=== PATIENT | male | born 1995 | race Caucasian/White ===

== ENCOUNTER 2018-08-10 19:14 | Inpatient (IN) | payer SELFPAY ==
[2018-08-10] MEDS: NS 1,000 ML IV (20:00)
[2018-08-10 20:06] LABS: BASO % 0.5 % (0.0-1.0); EOS # 0.1 10^3/uL (0.0-0.50); HEMATOCRIT 44.9 % (42.0-52.0); HEMOGLOBIN 15.5 g/dl (13.5-17.5); IMMATURE GRANULOCYTE % 0.2 % (0-3.0); LYMPH # 2.5 10^3/uL (1.5-6.5); LYMPH % 29.8 % (24.0-44.0); MEAN CORPUSCULAR HEMOGLOBIN 31.3 pg (27.0-33.0); MEAN CORPUSCULAR HGB CONC 34.5 g/dl (32.0-36.5); MEAN CORPUSCULAR VOLUME 90.7 fl (80.0-96.0); MONO # 0.6 10^3/uL (0.0-0.8); MONO % 7.6 % (0.0-5.0); NEUTROPHILS # 5.1 10^3/uL (1.8-7.7); NEUTROPHILS % 60.9 % (36.0-66.0); PLATELET COUNT, AUTOMATED 205 10^3/uL (150-450); RED BLOOD COUNT 4.95 10^6/uL (4.30-6.10); RED CELL DISTRIBUTION WIDTH 11.8 % (11.5-14.5); WHITE BLOOD COUNT 8.4 10^3/uL (4.0-10.0)
[2018-08-10 20:27] LABS: ABG BASE EXCESS 0.3 (-2.0-2.0); ABG HCO3 25.4 MEQ/L (22.0-26.0); ABG O2 SATURATION 97.7 % (95.0-99.0); ABG PARTIAL PRESSURE CO2 42.8 mmHg (35.0-45.0); ABG PARTIAL PRESSURE O2 99.9 mmHg (75.0-100.0); ABG STANDARD HCO3 24.8 MEQ/L (22.0-26.0); ABG TOTAL CO2 26.8 MEQ/L (22.0-29.0); ABG pH (ARTERIAL) 7.392 UNITS (7.350-7.450)
[2018-08-10 20:28] LABS: AMPHETAMINES LEVEL URINE POSITIVE (NEGATIVE); BARBITURATES URINE NEGATIVE (NEGATIVE); BENZODIAZEPINES URINE NEGATIVE (NEGATIVE); CANNABINOIDS URINE NEGATIVE (NEGATIVE); COCAINE METABOLITE URINE NEGATIVE (NEGATIVE); METHADONE URINE NEGATIVE (NEGATIVE); OPIATES URINE NEGATIVE (NEGATIVE); PHENCYCLIDINE URINE NEGATIVE (NEGATIVE)
[2018-08-10] MEDS: CHARCOAL ACTIVATED LIQUID 25 GM/120 ML BTL PO (20:37)
[2018-08-10 20:44] LABS: BEDSIDE GLUCOSE 102 MG/DL (70-105)
[2018-08-10 20:45] LABS: ACETAMINOPHEN LEVEL < 2.0 UG/ML (10.0-30.0); ALBUMIN 4.8 GM/DL (3.2-5.2); ALBUMIN/GLOBULIN RATIO 1.66 (1.00-1.93); ALKALINE PHOSPHATASE 102 U/L (45-117); ALT/SGPT 26 U/L (12-78); ANION GAP 8 MEQ/L (8-16); AST/SGOT 39 U/L (7-37); BILIRUBIN,DIRECT 0.4 MG/DL (0.0-0.2); BILIRUBIN,TOTAL 1.7 MG/DL (0.2-1.0); BLOOD UREA NITROGEN 13 MG/DL (7-18); CALCIUM LEVEL 9.1 MG/DL (8.5-10.1); CARBON DIOXIDE LEVEL 28 MEQ/L (21-32); CHLORIDE LEVEL 104 MEQ/L (98-107); CPK CREATINE PHOSPHOKINASE 411 U/L (39-308); CREATININE FOR GFR 0.98 MG/DL (0.70-1.30); ETHYL ALCOHOL (ETHANOL) 0.111 % (0.000-0.010); GLOMERULAR FILTRATION RATE > 60.0 (>60); GLUCOSE, FASTING 108 MG/DL (70-100); SALICYLATE LEVEL < 1.7 MG/DL (5.0-30.0); SODIUM LEVEL 140 MEQ/L (136-145); TOTAL PROTEIN 7.7 GM/DL (6.4-8.2)
[2018-08-10] MEDS: LORazepam 2 MG/ML VIAL (J2060) IV ×2 (22:05→22:54)
[2018-08-11] MEDS ORDERED: PROPOFOL 1,000 MG/100 ML VIAL As Ordered (00:32)
[2018-08-11] MEDS ORDERED: ONDANSETRON 4MG/2ML VIAL (J2405) As Ordered (00:32)
[2018-08-11] MEDS: ETOMIDATE INJ 20MG/10ML VIAL IV (00:37)
[2018-08-11] MEDS: SUCCINYLCHOLINE INJ 200 MG/10 ML VIAL (J0330) IV (00:38)
[2018-08-11] MEDS: PROPOFOL 1,000 MG in APPROPRIATE DILUENT 1 EA IV ×6 (00:40→08:55)
[2018-08-11] MEDS: ONDANSETRON 4MG/2ML VIAL (J2405) IV (01:32)
[2018-08-11 01:39] LABS: ABG BASE EXCESS -2.9 (-2.0-2.0); ABG HCO3 22.1 MEQ/L (22.0-26.0); ABG O2 SATURATION 98.8 % (95.0-99.0); ABG PARTIAL PRESSURE CO2 39.3 mmHg (35.0-45.0); ABG PARTIAL PRESSURE O2 151.7 mmHg (75.0-100.0); ABG STANDARD HCO3 22.1 MEQ/L (22.0-26.0); ABG TOTAL CO2 23.3 MEQ/L (22.0-29.0); ABG pH (ARTERIAL) 7.368 UNITS (7.350-7.450)
[2018-08-11] MEDS ORDERED: ONDANSETRON 4MG/2ML VIAL (J2405) IV (03:00)
[2018-08-11] MEDS ORDERED: BISACODYL 10 MG SUPP PR (03:00)
[2018-08-11] MEDS ORDERED: ALBUTEROL SULFATE 2.5 MG/0.5 ML INH NEB SOLN NEB (03:15)
[2018-08-11] MEDS ORDERED: MORPHINE 4 MG/ML 1ML VIAL/SYRINGE (J2270) IV (03:15)
[2018-08-11] MEDS: IPRATROPIUM 0.5MG/ALBUTEROL 2.5MG INH SOL UD 3ML (DUONEB)(J7620) NEB ×2 (03:50→07:25)
[2018-08-11] MEDS: D5W/0.45% SODIUM CHLORIDE 1,000 ML IV (03:54)
[2018-08-11] MEDS: MIDAZOLAM INJ 2 MG/2 ML VIAL (J2250) IV ×2 (03:54→08:37)
[2018-08-11 05:16] LABS: BASO % 0.4 % (0.0-1.0); EOS % 0.4 % (0.0-3.0); HEMATOCRIT 40.7 % (42.0-52.0); IMMATURE GRANULOCYTE % 0.2 % (0-3.0); LYMPH % 35.5 % (24.0-44.0); MEAN CORPUSCULAR HGB CONC 34.4 g/dl (32.0-36.5); MEAN CORPUSCULAR VOLUME 90.2 fl (80.0-96.0); MONO # 0.4 10^3/uL (0.0-0.8); MONO % 7.4 % (0.0-5.0); NEUTROPHILS # 3.1 10^3/uL (1.8-7.7); NEUTROPHILS % 56.1 % (36.0-66.0); PLATELET COUNT, AUTOMATED 174 10^3/uL (150-450); RED BLOOD COUNT 4.51 10^6/uL (4.30-6.10); RED CELL DISTRIBUTION WIDTH 11.8 % (11.5-14.5); WHITE BLOOD COUNT 5.6 10^3/uL (4.0-10.0)
[2018-08-11 05:25] LABS: PROTHROMBIN TIME 14.3 SECONDS (12.1-14.4)
[2018-08-11 05:37] LABS: ALBUMIN 3.9 GM/DL (3.2-5.2); ALKALINE PHOSPHATASE 89 U/L (45-117); ALT/SGPT 24 U/L (12-78); ANION GAP 10 MEQ/L (8-16); AST/SGOT 32 U/L (7-37); BILIRUBIN,TOTAL 1.7 MG/DL (0.2-1.0); BLOOD UREA NITROGEN 7 MG/DL (7-18); CALCIUM LEVEL 8.4 MG/DL (8.5-10.1); CARBON DIOXIDE LEVEL 24 MEQ/L (21-32); CHLORIDE LEVEL 109 MEQ/L (98-107); CHOLESTEROL LEVEL 117 MG/DL (< 200); CPK CREATINE PHOSPHOKINASE 383 U/L (39-308); CREATININE FOR GFR 0.85 MG/DL (0.70-1.30); GLOMERULAR FILTRATION RATE > 60.0 (>60); GLUCOSE, FASTING 121 MG/DL (70-100); LDH LACTATE DEHYDROGENASE 228 U/L (87-241); MAGNESIUM LEVEL 2.2 MG/DL (1.8-2.4); PHOSPHORUS LEVEL 2.4 MG/DL (2.5-4.9); POTASSIUM SERUM 3.6 MEQ/L (3.5-5.1); SODIUM LEVEL 143 MEQ/L (136-145); TOTAL PROTEIN 6.5 GM/DL (6.4-8.2); TRIGLYCERIDES LEVEL 278 MG/DL (<150)
[2018-08-11] MEDS: PANTOPRAZOLE 40MG INJ (PROTONIX) (C9113) IV (06:26)
[2018-08-11] MEDS: CHLORHEXIDINE ORAL RINSE 0.12%/15ML 120ML BOTTLE MT (08:54)
[2018-08-11] MEDS: ENOXAPARIN 40 MG/0.4 ML SYRINGE (J1650) SC (08:55)
[2018-08-12 10:56] LABS: HIV 1&2 SCREEN CENTAUR NEGATIVE (NEGATIVE)
== END 2018-08-11 17:24 | DRG 812 ==
LOC: M ED INP 08-11 02:49 → M ICU 08-11 03:28 → M ED 19:14
PROC: 5A1935Z Respiratory Ventilation, Less than 24 Consecutive Hours (ICD-10-PCS; principal; 2018-08-11)
DX: T43.602A Poisoning by unspecified psychostimulants, intentional self-harm, initial encounter (principal); J96.00 Acute respiratory failure, unspecified whether with hypoxia or hypercapnia; F32.2 Major depressive disorder, single episode, severe without psychotic features; T44.6X2A Poisoning by alpha-adrenoreceptor antagonists, intentional self-harm, initial encounter; Z79.899 Other long term (current) drug therapy; F10.10 Alcohol abuse, uncomplicated

== ENCOUNTER 2018-08-11 17:28 | Inpatient (IN) | payer MEDICAID, SELFPAY ==
[~2018-08-11 17:28] MED LIST: LORazepam 2 MG TAB PO; MAALOX 30 ML SUSP *UDC PO; MOM 30ML SUSPENSION UDC PO
[2018-08-11] MEDS: THIAMINE 100 MG TAB PO (18:06)
[2018-08-11] MEDS: ACETAMINOPHEN TAB 650MG DOSE (2X325MG) PO (18:09)
[2018-08-11] MEDS: OLANZapine ORAL DISINTEGRATING TAB 5MG PO (23:15)
[2018-08-11] MEDS: LORazepam 1 MG TAB PO (23:31)
[2018-08-12] MEDS ORDERED: LORazepam 1 MG TAB PO ×3 (04:00→09:00)
[2018-08-12] MEDS: FOLIC ACID 1 MG TAB PO (10:26)
[2018-08-12] MEDS: SERTRALINE HCL 50 MG TAB PO (10:26)
[2018-08-12] MEDS: MULTIVITAMINS/MINERALS THERAP 1 TAB PO (10:26)
[2018-08-12] MEDS: THIAMINE 100 MG TAB PO ×2 (10:26→21:00)
[2018-08-12] MEDS: INFLUENZA QUADRIVALENT PF VACCINE 0.5ML SYRINGE (90686) IM (10:33)
[2018-08-13] MEDS: FOLIC ACID 1 MG TAB PO (09:45)
[2018-08-13] MEDS: SERTRALINE HCL 50 MG TAB PO (09:45)
[2018-08-13] MEDS: MULTIVITAMINS/MINERALS THERAP 1 TAB PO (09:45)
[2018-08-13] MEDS: THIAMINE 100 MG TAB PO ×2 (09:45→21:00)
[2018-08-14] MEDS: MULTIVITAMINS/MINERALS THERAP 1 TAB PO (08:40)
[2018-08-14] MEDS: FOLIC ACID 1 MG TAB PO (08:40)
[2018-08-14] MEDS: SERTRALINE HCL 50 MG TAB PO (08:40)
[2018-08-14] MEDS: THIAMINE 100 MG TAB PO (08:40)
[2018-08-15] MEDS: SERTRALINE HCL 50 MG TAB PO (08:34)
[2018-08-15] MEDS: MULTIVITAMINS/MINERALS THERAP 1 TAB PO (08:34)
[2018-08-15] MEDS: FOLIC ACID 1 MG TAB PO (08:34)
[2018-08-16] MEDS: SERTRALINE HCL 50 MG TAB PO (08:41)
[2018-08-17] MEDS: SERTRALINE HCL 50 MG TAB PO (09:15)
== END 2018-08-17 13:45 | disposition home or self-care (01) | DRG 751 ==
LOC: M PSY 17:28
DX: F33.2 Major depressive disorder, recurrent severe without psychotic features (principal); F41.1 Generalized anxiety disorder; F10.10 Alcohol abuse, uncomplicated; F12.90 Cannabis use, unspecified, uncomplicated; Z91.038 Other insect allergy status

== ENCOUNTER → 2018-08-26 | Outpatient (REF) | payer MEDICAID ==
[2018-08-26 14:10] LABS: ALBUMIN 4.3 GM/DL (3.2-5.2); ALBUMIN/GLOBULIN RATIO 1.34 (1.00-1.93); ALKALINE PHOSPHATASE 93 U/L (45-117); ALT/SGPT 24 U/L (12-78); ANION GAP 6 MEQ/L (8-16); AST/SGOT 27 U/L (7-37); BILIRUBIN,TOTAL 0.9 MG/DL (0.2-1.0); BLOOD UREA NITROGEN 18 MG/DL (7-18); CALCIUM LEVEL 8.8 MG/DL (8.5-10.1); CARBON DIOXIDE LEVEL 29 MEQ/L (21-32); CHLORIDE LEVEL 107 MEQ/L (98-107); CREATININE FOR GFR 0.86 MG/DL (0.70-1.30); GLOMERULAR FILTRATION RATE > 60.0 (>60); GLUCOSE, FASTING 73 MG/DL (70-100); POTASSIUM SERUM 4.2 MEQ/L (3.5-5.1); SODIUM LEVEL 142 MEQ/L (136-145); TOTAL PROTEIN 7.5 GM/DL (6.4-8.2)
[2018-08-26 16:43] LABS: APPEARANCE, URINE CLEAR (CLEAR); BACTERIA, URINE AUTO NEGATIVE (NEGATIVE); BILIRUBIN, URINE AUTO NEGATIVE (NEGATIVE); BLOOD, URINE BLOOD NEGATIVE (NEGATIVE); CALCIUM OXALATE CRYSTALS SMALL; COLOR, URINE YELLOW (YELLOW); GLUCOSE, URINE (UA) AUTO NEGATIVE (NEGATIVE); KETONE, URINE AUTO NEGATIVE (NEGATIVE); LEUKOCYTE ESTERASE, URINE AUTO NEGATIVE (NEGATIVE); MUCUS, URINE SMALL (NEGATIVE); NITRITE, URINE AUTO NEGATIVE (NEGATIVE); PROTEIN, URINE AUTO NEGATIVE (NEGATIVE); RBC, URINE AUTO 0 /HPF (0-3); SPECIFIC GRAVITY URINE AUTO 1.028 (1.002-1.035); SQUAMOUS EPITHELIAL CELL UR AU 0 /HPF (0-6); UROBILINOGEN, URINE AUTO 0.2 mg/dL (0.0-2.0); WBC, URINE AUTO 0 /HPF (0-3)
== END ==
LOC: M SFHCPLAZ 11:16
DX: R74.8 Abnormal levels of other serum enzymes (principal); R30.0 Dysuria

== ENCOUNTER 2018-12-23 11:18 | Emergency (ER) | payer MEDICAID, OTHER ==
[~2018-12-23] VITALS: Ht 170.2 cm; Wt 84.6 kg
[~2018-12-23 11:18] MED LIST changes: -LORazepam 2 MG TAB PO; -MAALOX 30 ML SUSP *UDC PO; -MOM 30ML SUSPENSION UDC PO; +SERT-141 PO
[2018-12-23] MEDS ORDERED: ONDANSETRON 4MG/2ML VIAL (J2405) IV ONE (12:00)
[2018-12-23] MEDS ORDERED: DICYCLOMINE INJ 20MG/2ML (J0500) IM ONE (12:00)
[2018-12-23] MEDS ORDERED: NS 1,000 ML IV ONE (12:00)
[2018-12-23 12:27] LABS: BASO % 0.2 % (0.0-1.0); EOS % 0.2 % (0.0-3.0); HEMOGLOBIN 14.4 g/dl (13.5-17.5); LYMPH # 0.8 10^3/uL (1.5-6.5); LYMPH % 12.8 % (24.0-44.0); MEAN CORPUSCULAR HEMOGLOBIN 31.9 pg (27.0-33.0); MEAN CORPUSCULAR HGB CONC 34.3 g/dl (32.0-36.5); MEAN CORPUSCULAR VOLUME 92.9 fl (80.0-96.0); MONO # 0.4 10^3/uL (0.0-0.8); MONO % 6.2 % (0.0-5.0); NEUTROPHILS # 5.2 10^3/uL (1.8-7.7); NEUTROPHILS % 80.1 % (36.0-66.0); PLATELET COUNT, AUTOMATED 184 10^3/uL (150-450); RED BLOOD COUNT 4.52 10^6/uL (4.30-6.10); WHITE BLOOD COUNT 6.5 10^3/uL (4.0-10.0)
[2018-12-23 12:46] LABS: BLOOD UREA NITROGEN 16 MG/DL (7-18); CALCIUM LEVEL 8.9 MG/DL (8.5-10.1); CARBON DIOXIDE LEVEL 28 MEQ/L (21-32); CHLORIDE LEVEL 107 MEQ/L (98-107); CREATININE FOR GFR 0.97 MG/DL (0.70-1.30); GLOMERULAR FILTRATION RATE > 60.0 (>60); GLUCOSE, FASTING 100 MG/DL (70-100); POTASSIUM SERUM 4.1 MEQ/L (3.5-5.1); SODIUM LEVEL 140 MEQ/L (136-145)
[2018-12-23 12:52] LABS: INFLUENZA A AMPLIFICATION NEGATIVE (NEGATIVE); INFLUENZA B AMPLIFICATION NEGATIVE (NEGATIVE)
[2018-12-23] MEDS ORDERED: METOCLOPRAMIDE INJ 10MG/2ML VIAL (J2765) IV ONE (14:15)
[2018-12-23] MEDS ORDERED: KETOROLAC 30 MG/ML VIAL (J1885) IV ONE (14:15)
[2018-12-23] MEDS ORDERED: diphenhydrAMINE INJ 50MG/ML VIAL (J1200) IV STA (14:37)
[2018-12-23] MEDS ORDERED: ONDA4TAB6 PO ×2 (15:56→16:07)
[2018-12-23 16:07] VITALS: BP 131/67
== END 2018-12-23 16:13 | disposition home or self-care (01) ==
LOC: M ED 11:18
DX: K52.9 Noninfective gastroenteritis and colitis, unspecified (principal); F33.9 Major depressive disorder, recurrent, unspecified; Z91.030 Bee allergy status; Z87.891 Personal history of nicotine dependence
CPT/HCPCS: 36415; 80048; 85025; 87502; 96361; 96372; 96374; 96375; 99284; J0500; J1200; J1885; J2405; J2765

== ENCOUNTER 2019-01-14 06:01 | Emergency (ER) | payer OTHER ==
[~2019-01-14] VITALS: Ht 172.7 cm; Wt 68.2 kg
[~2019-01-14 06:01] MED LIST changes: +ONDA4TAB6 PO
[2019-01-14 06:02] VITALS: BP 146/80
[2019-01-14] MEDS ORDERED: IBUPROFEN 800 MG TAB PO ONE (06:30)
[2019-01-14] MEDS ORDERED: IBUP80TA PO (06:34)
--- NOTE | 2019-01-14 08:04 | REP ---
Left humerus two view : There is no fracture or dislocation. Mineralization and joint spaces are normal. There are no calcifications or foreign bodies. Impression: Negative left humerus . Electronically Signed by Tristin Gaines MD 01/14/2019 07:55 A
== END 2019-01-14 06:44 | disposition home or self-care (01) ==
LOC: M ED 06:01
DX: S40.022A Contusion of left upper arm, initial encounter (principal); W22.8XXA Striking against or struck by other objects, initial encounter; Y92.89 Other specified places as the place of occurrence of the external cause; Y99.0 Civilian activity done for income or pay

== ENCOUNTER 2019-01-20 20:15 | Emergency (ER) | payer OTHER ==
[~2019-01-20] VITALS: Ht 170.2 cm; Wt 68.2 kg
[~2019-01-20 20:15] MED LIST changes: +IBUP80TA PO
[2019-01-20 20:48] VITALS: BP 130/70
[2019-01-20] MEDS ORDERED: ACETAMINOPHEN TAB 650MG DOSE (2X325MG) PO ONE (21:15)
--- NOTE | 2019-01-21 08:28 | REP ---
MAXILLOFACIAL CT WITHOUT CONTRAST: HISTORY: Trauma. The examination is available for review a 08:20 a.m. 01/21/2019 The sinuses are clear. The osteomeatal units are patent. The middle and inferior nasal turbinates are partially paradoxical. There is rebecca bullosa of the middle nasal turbinates. The nasal septum is midline. The cribriform plate, medial metz of the orbits and optic canals are intact. The carotid canals form a segment of the posterolateral metz of the sphenoid sinus. There is no fracture. IMPRESSION: There is no acute or chronic sinusitis. Electronically Signed by Trevon Gil MD 01/21/2019 08:30 A
== END 2019-01-20 22:54 | disposition home or self-care (01) ==
LOC: M ED 20:15
DX: S02.2XXA Fracture of nasal bones, initial encounter for closed fracture (principal); W22.8XXA Striking against or struck by other objects, initial encounter; Y92.89 Other specified places as the place of occurrence of the external cause; Y93.9 Activity, unspecified; Y99.0 Civilian activity done for income or pay; Z91.030 Bee allergy status